=== PATIENT | male | born 1990 | race Caucasian/White ===

== ENCOUNTER 2021-05-15 10:40 | Emergency (ER) | payer OTHER, SELFPAY ==
--- NOTE | 2021-05-15 10:45 | ED.URI ---
HPI - URI/Sore Throat General Chief Complaint: Upper Respiratory Infection Stated Complaint: FEVER/SORE THROAT/BODY ACHES Time Seen by Provider: 05/15/21 10:55 Source: patient Mode of arrival: ambulatory Limitations: no limitations History of Present Illness HPI Narrative: History also is a 22-year-old male patient presenting to the clinic today with complaints of fever, cough, sore throat, nasal congestion, body aches x2 days. He reports that he has been coughing so much that has caused him to vomit as well as developing some pain in his chest when coughing. He reports he has not been vaccinated against Covid or receiving the flu shot. Denies any known exposure to anybody with Covid. Has been taking DayQuil/ NyQuil to help alleviate his symptoms. MD elicited complaint: fever, cough, sore throat, rhinorrhea, nasal congestion and other (Body aches) Related Data Allergies Allergy/AdvReac Type Severity Reaction Status Date / Time No Known Allergies Allergy Verified 07/11/14 21:25 Review of Systems Review of Systems: Pertinent positives per HPI. Patient denies any rash, headache, visual changes, dizziness, cough, shortness of breath, chest pain, palpitations, nausea, vomiting, diarrhea, constipation, abdominal pain, or any urinary issues. [facility] Family History Family History Mother Hypertension Other Family history of genetic disorder No family history of cardiovascular disease Social History Social History Smoking status: Never smoker Alcohol intake: never Comments At the time of my signature, I reviewed and agree with the nursing past medical, surgical, social, and family history. There is no relevant family history pertinent to the patient complaint. Exam Narrative: General: Well-developed, well nourished, moderately ill appearing. Head: Normocephalic, atraumatic Eyes: Pupils equally round and reactive to light bilaterally, EOM intact, sclera and conjunctive clear, no discharge, lids normal Ears: TMs intact, dull, red, ear canals clear, no drainage, grossly hearing normal. Nose: Nares patent, clear nasal discharge, mild inflammation to anterior and posterior turbinates, no sinus tenderness. Mouth: Oral pharynx without lesions or masses, good dentition, MMM. Postnasal drip, oropharynx red Neck: Supple, trachea midline, no enlargement of anterior or posterior cervical nodes, no thyroid masses or goiter palpable. Cardio: Regular rate and rhythm, s1 and s2 normal, no murmur appreciated. Resp: Clear to auscultation bilaterally, no rhonchi, rales, wheezing or rubs, wet cough Course Course Emergency Course: Portions of this record may have been created with voice recognition software. Level of Care: Express Care Visit Vital Signs Vital signs: Vital signs reviewed MDM - URI/Sore Throat MDM Narrative Medical decision making narrative: Patient presents with Covid/flulike symptoms to the clinic today. Covid and influenza testing completed in the clinic. Patient was positive for influenza A. Symptoms of been only going on for 2 days so he qualifies for Tamiflu treatment. Lung sounds are clear-patient able to take deep breaths but does have some discomfort. At this time I do not think a x-ray is warranted as lung sounds are clear and patient is not in any respiratory distress however, if shortness of breath worsens recommended an x-ray to rule out viral pneumonia. Differential Diagnosis Differential diagnosis: Likely upper respiratory infection, sinusitis, pharyngitis and other (Covid) Discharge Plan Discharge Clinical Impression: Influenza A Patient Disposition: Home, Self-Care Condition: Stable Instructions: Influenza (ED) Additional Instructions: Discussed patient's elevated blood pressure at the time of visit and recommend follow-up with primary care physician to have th
[2021-05-15 10:53] VITALS: BP 120/105; PULSE 103; RESP 16; TEMP 38; O2SAT 98
== END 2021-05-15 11:10 | disposition home or self-care (01) ==
PROVIDERS: Emergency Provider Nurse Practitioner Family; PCP Physician Assistant
DX: J10.1 Influenza due to other identified influenza virus with other respiratory manifestations (principal)
CPT/HCPCS: 87426; 87804; 99203; C9803; G0463

== ENCOUNTER 2021-09-24 19:39 | Emergency (ER) | payer OTHER, SELFPAY ==
[2021-09-24 19:47] VITALS: BP 129/79; PULSE 58; RESP 16; TEMP 36.9; O2SAT 99
[2021-09-24] MEDS: AZITHROMYCIN 250 MG TABLET 1000 MG PO (20:05)
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
== END 2021-09-24 20:23 | disposition home or self-care (01) ==
PROVIDERS: Emergency Provider Nurse Practitioner
DX: Z20.2 Contact with and (suspected) exposure to infections with a predominantly sexual mode of transmission (principal)
CPT/HCPCS: 87491; 87591; 87661; 99213; A9270; G0463

== ENCOUNTER 2021-11-01 14:16 | Emergency (ER) | payer OTHER, SELFPAY ==
--- NOTE | ~2021-11-01 | XR_ITS ---
EXAMINATION: XR hand RT min 3V DATE: 11/01/2021 14:51 INDICATION: Punching injury. Pain at the fourth metacarpophalangeal joint. TECHNIQUE: Posteroanterior, oblique and lateral views of the right hand were obtained. COMPARISON: 07/11/2014 FINDINGS: Bone alignment is normal. No acute fracture. Chronic small ossicle with corticated donor site at the tip of the radial styloid process consistent with a chronic nonunited fracture. Small bone island at the lunate. Joint spaces are normal. Prominent soft tissue swelling over the dorsum of the hand. IMPRESSION: 1. No acute osseous abnormality. Reviewed, dictated and finalized at location A.
[2021-11-01 14:35] VITALS: BP 134/82; PULSE 53; RESP 16; TEMP 36.7; O2SAT 97
--- NOTE | 2021-11-01 14:44 | ED.UPPEXIN ---
HPI - Extremity Injury (Upper) General Chief Complaint: Extremity Injury, Upper Stated Complaint: Right Hand Injury Time Seen by Provider: 11/01/21 14:45 Source: patient and RN notes reviewed Mode of arrival: ambulatory Limitations: no limitations History of Present Illness HPI narrative: 31-year-old male presents to the express room with complaints of right hand pain after punching a wall a week ago. Redness and swelling over fourth MCP joint with 2 scabbed over abrasions noted. Patient states that he took a hot shower yesterday and had pus come from it described as yellow and clear. No treatment prior to arrival. Does have good range of motion, decreased unable to make a complete fist or straighten completely secondary to pain and swelling. MCP joint is warm, red, tender to touch. Patient states that he is concerned for a fracture and or infection. Capillary refill under 2 seconds in all 5 fingers. Sensation intact all 5 fingers. Patient is right-hand dominant Related Data Allergies Allergy/AdvReac Type Severity Reaction Status Date / Time No Known Allergies Allergy Verified 11/01/21 14:47 Review of Systems Review of Systems: All systems reviewed & are unremarkable except as noted in HPI and below Constitutional: Constitutional: Reports no additional constitutional complaints, Denies chills and Denies fever(s) Eyes: Eyes: Reports no additional eye complaints ENT: Reports system reviewed and no additional complaints, except as documented Cardiovascular: Cardiovascular: Reports no additional cardiovascular complaints Respiratory: Respiratory: Reports no additional respiratory complaints Gastrointestinal: Gastrointestinal: Reports no additional gastrointestinal complaints Musculoskeletal: Musculoskeletal: Reports as per HPI Integumentary/Breasts: Skin/Breast: Reports as per HPI and Reports erythema Neurologic: Reports system reviewed and no additional complaints, except as documented Psychiatric: Psychiatric: Reports no additional psychiatric complaints Allergic/Immunologic: Allergic/Immunologic: Reports no additional allergic/immunologic complaints [facility] Past Medical History Medical History No pertinent past medical history Surgical History Surgical History No pertinent past surgical history Family History Family History Mother Hypertension Other Family history of genetic disorder No family history of cardiovascular disease Social History Social History (Reviewed 11/02/21 @ 08:15 by VIVIAN Antony Smoking status: Never smoker Alcohol intake: never Substance use: never Gender identity (if verbalized by the patient): Male Sexual Orientation (if Verbalized by the Patient): Straight or Heterosexual Spiritual care concerns: No Comments At the time of my signature, I reviewed and agree with the nursing past medical, surgical, social, and family history. There is no relevant family history pertinent to the patient complaint. Exam Const: General: healthy appearing, no acute distress and alert Nutritional Appearance: well nourished Orientation/consciousness: patient oriented x3 Limitations: no limitations HENMT: Head: normal to inspection Ears: external ears normal Eyes: General: appearance normal, both eyes and all related structures Pupils: Equal, round and reactive pupils present Neck: Neck: normal visual inspection, no lymphadenopathy and no meningeal signs Chest: Chest palpation & inspection: normal inspection of the chest Resp: Effort & Inspection: normal respiratory effort and no use of accessory muscles Auscultation: clear to auscultation bilaterally, no crackles, no rales, no rhonchi and no wheezes Cardio: Rate: regular rate Rhythm: regular rhythm GI: GI Palp: Yes Soft to palpation and No Tendern
== END 2021-11-01 15:40 | disposition home or self-care (01) ==
PROVIDERS: Emergency Provider Nurse Practitioner
DX: S60.221A Contusion of right hand, initial encounter (principal); W22.09XA Striking against other stationary object, initial encounter; L03.113 Cellulitis of right upper limb
CPT/HCPCS: 73130; 99213; G0463

== ENCOUNTER 2021-12-23 12:26 | Emergency (ER) | payer OTHER, SELFPAY ==
[2021-12-23 12:28] VITALS: BP 174/99; PULSE 55; RESP 19; TEMP 36.1; O2SAT 99
--- NOTE | 2021-12-23 12:51 | PC.NURSE ---
Pt ambulated out of w/r and states did not want to be seen due to wait time. Steady gait.
== END 2021-12-23 12:51 | disposition left against medical advice (07) ==
LOC: ANHED 12:54
DX: M54.9 Dorsalgia, unspecified (principal)
CPT/HCPCS: 99199

== ENCOUNTER 2021-12-23 13:41 | Emergency (ER) | payer OTHER, SELFPAY ==
--- NOTE | ~2021-12-23 | CT_ITS ---
EXAMINATION: CT lumbar spine wo con DATE: 12/23/2021 18:23 INDICATION: low back pain . TECHNIQUE: Computed tomography (CT) of the lumbar spine was performed without intravenous contrast. A utomated exposure control and iterative reconstruction technique were employed. The dose-length produ ct was 1280.52 mGy-cm. COMPARISON: X-rays, same date. FINDINGS: 5 nonrib-bearing lumbar-type vertebral bodies. Chronic bilateral L5 pars defects. 2 mm ante rolisthesis at L5-S1 where there is a moderate bulge and a 7 mm broad-based left foraminal protrusion causing moderate left neural foraminal narrowing. No severe central canal narrowing. Vertebral body heights preserved. Disc spaces maintained. Normal facets and posterior elements. IMPRESSION: No acute fracture or traumatic malalignment in the lumbar spine. Chronic bilateral L5 pars defect. Gr talat 1 anterolisthesis at L5-S1. Degenerative disc changes at L5-S1 with a left foraminal protrusion c ausing moderate left L5-S1 neural foraminal narrowing. Reviewed, dictated and finalized at location K. IMPRESSION: No acute fracture or traumatic malalignment in the lumbar spine. Chronic bilate ral L5 pars defect. Grade 1 anterolisthesis at L5-S1. Degenerative disc changes at L5-S1 with a left foraminal protrusion causing moderate left L5-S1 neural f oraminal narrowing.
--- NOTE | ~2021-12-23 | XR_ITS ---
EXAMINATION: XR lumbar spine 2-3V DATE: 12/23/2021 16:50 INDICATION: Low back pain TECHNIQUE: Anteroposterior and lateral views of the lumbar spine, and cone-down lateral view of the l umbosacral junction were obtained. COMPARISON: 05/31/2007 FINDINGS: There are 3 mm of chronic anterolisthesis of L5 on S1. Bone alignment is otherwise normal. The vertebral body heights and intervertebral disc spaces are maintained. There is mild facet joint o steoarthritis at L5-S1. The bowel gas pattern is normal. IMPRESSION: 1. Mild lumbar spondylosis without acute findings. Reviewed, dictated and finalized at location A.
[2021-12-23 13:44] VITALS: BP 154/97; PULSE 53; RESP 15; TEMP 36.2; O2SAT 99
--- NOTE | 2021-12-23 16:36 | ED.BACK ---
HPI - Back Pain/Injury General Chief Complaint: Back Pain/Injury Stated Complaint: back pain Time Seen by Provider: 12/23/21 15:58 Source: patient Mode of arrival: ambulatory Limitations: no limitations History of Present Illness HPI Narrative: This is a 31 year old male that presents to the ER for low back pain since yesterday. No recent injury or trauma. Reports the pain is worse with movement and relieved with rest. Primarily in the left side of his low back. No radiation. Denies numbness or weakness. Related Data Allergies Allergy/AdvReac Type Severity Reaction Status Date / Time No Known Allergies Allergy Verified 12/23/21 14:13 Review of Systems Review of Systems: CONSTITUTIONAL: Denies fever SKIN: Denies rash MUSCULOSKELETAL: Reports back pain, joint pain, and myalgia. NEUROLOGIC: Denies numbness, or weakness. All systems reviewed & are unremarkable except as noted in HPI and below PMFSH Past Medical History Medical History No pertinent past medical history Surgical History Surgical History No pertinent past surgical history Family History Family History Mother Hypertension Other Family history of genetic disorder No family history of cardiovascular disease Social History Social History Smoking status: Never smoker Alcohol intake: never Substance use: never Gender identity (if verbalized by the patient): Male Sexual Orientation (if Verbalized by the Patient): Straight or Heterosexual Spiritual care concerns: No Exam Narrative: GENERAL: Well-appearing, well-nourished, and in no acute distress. HEAD: Normocephalic, atraumatic. EYES: EOMI. CHEST: Clear to auscultation. No respiratory distress. No wheezes rales or rhonchi HEART: Regular rate and rhythm. No murmur heard. Normal peripheral pulses. BACK: No midline spinal tenderness EXTREMITIES: Normal range of motion. No edema. Normal DP pulses. Strength equal in bilateral lower extremities (5/5). SKIN: Warm, dry, no rash. NEURO: No focal deficits. Alert and oriented x3. Normal gait PSYCH: Normal mood and affect Course Vital Signs Vital signs: Vital Signs Temperature 97.2 F L 12/23/21 13:44 Pulse Rate 53 L 12/23/21 13:44 Respiratory Rate 15 12/23/21 13:44 Blood Pressure 154/97 H 12/23/21 13:44 Pulse Oximetry 99 12/23/21 13:44 Oxygen Delivery Room Air 12/23/21 13:44 Temperature 97.2 F L 12/23/21 13:44 Pulse Rate 53 L 12/23/21 13:44 Respiratory Rate 15 12/23/21 13:44 Blood Pressure 154/97 H 12/23/21 13:44 Pulse Oximetry 99 12/23/21 13:44 Oxygen Delivery Room Air 12/23/21 13:44 MDM - Back Pain/Injury MDM Narrative Medical decision making narrative: Patient presents to the emergency department for low back pain ongoing since yesterday. No recent injury or trauma. He is afebrile and nontoxic-appearing. He is neurovascularly intact. Lumbar spine x-ray shows mild lumbar spondylosis. CT scan of the lumbar spine was obtained to further delineate. No acute fracture or traumatic malalignment of the lumbar spine. He does have degenerative disc changes at L5/S1 with a left foraminal protrusion causing moderate left L5/S1 neuroforaminal narrowing. Likely cause of patient's pain as his pain is in the left buttock. Patient instructed to continue Tylenol and anti-inflammatories as needed for pain. Will be given muscle relaxer as needed for pain. Also started on a steroid taper. He will be given follow-up with primary and neurosurgery. He was given warnings to return to the ER Imaging Data Radiologist's impression: ITS Impressions Lumbar Spine X-Ray 12/23/21 16:53 IMPRESSION: 1. Mild lumbar spondylosis without acute findings. Lumbar Spine CT 12/23/21 18:52 I
--- NOTE | 2021-12-23 16:46 | PC.NURSE ---
Pt to xray.
[2021-12-23] MEDS: ACETAMINOPHEN 500 MG TABLET 1000 MG PO (16:57)
[2021-12-23] MEDS: KETOROLAC 30 MG/ML VIAL (*BKC) IM (16:57)
[2021-12-23] MEDS: diazePAM INJ (*CRX) 10 MG/2 ML SYRINGE 5 MG IM (16:57)
[2021-12-23 19:23] VITALS: BP 154/72; PULSE 60; RESP 18; O2SAT 98
== END 2021-12-23 19:26 | disposition home or self-care (01) ==
PROVIDERS: Emergency Provider Emergency Medicine
DX: M51.16 Intervertebral disc disorders with radiculopathy, lumbar region (principal); M47.816 Spondylosis without myelopathy or radiculopathy, lumbar region
CPT/HCPCS: 72100; 72131; 96372; 99284; A9270; J1885; J3360

== ENCOUNTER 2023-01-12 15:12 | Emergency (ER) | payer OTHER, SELFPAY ==
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
--- NOTE | ~2023-01-12 | US_ITS ---
EXAMINATION: US venous doppler [facility] DATE: 01/12/2023 16:21 INDICATION: painful calf, swelling. TECHNIQUE: Grayscale images without and with compression and Doppler images of the left lower extremi ty veins were obtained. COMPARISON: None FINDINGS: The left common femoral vein, profunda (deep) femoral vein, femoral vein, popliteal vein, peroneal v ein, posterior tibial veins, gastrocnemius vein, and greater saphenous vein are patent. Lower leg trupti long. IMPRESSION: Patent left lower extremity veins. No evidence of deep venous thrombosis. Reviewed, dictated and finalized at location K. R OPERATOR
[2023-01-12 15:20] VITALS: BP 157/81; PULSE 73; RESP 15; TEMP 36.7; O2SAT 97
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
[2023-01-12 17:33] VITALS: BP 145/99; PULSE 66; RESP 20; TEMP 36.4; O2SAT 97
--- NOTE | 2023-01-12 17:40 | PC.NURSE ---
Pt refused crutches, states he has some at home that he will use.
[2023-01-12] MEDS: ACETAMINOPHEN 500 MG TABLET 1000 MG PO (17:46)
[2023-01-12] MEDS: NAPROXEN 500 MG TABLET PO (17:46)
== END 2023-01-12 17:49 | disposition home or self-care (01) ==
LOC: ANHED 17:33
PROVIDERS: Emergency Provider Nurse Practitioner Family
DX: S80.12XA Contusion of left lower leg, initial encounter (principal); V86.55XA Driver of 3- or 4- wheeled all-terrain vehicle (ATV) injured in nontraffic accident, initial encounter
CPT/HCPCS: 73590; 93971; 99284; A9270